=== PATIENT | female | born 1975 | race Caucasian/White ===

== ENCOUNTER 2016-07-20 19:46 | Observation (INO) ==
[2016-07-20 20:43] LABS: Apearance,Urine Slightly Hazy (Clear); Bacteria,Urine Moderate /HPF (Few); Bilirubin,Urine Negative (Negative); Blood, Urine Moderate mg/dL (Negative); Glucose,Urine (UA) Negative (Negative); Ketones,Urine Negative (Negative); Mucus,Urine Occasional /LPF (Occasional); Nitrite,Urine Positive (Negative); Protein,Urine Negative; RBC,Urine 4 /HPF (0-4); Squamous Epithelial Cell,Urine Occasional /HPF (0-10); Urine Color Yellow (Yellow); Urine Specific Gravity 1.018 (1.001-1.035); WBC,Urine 5 /HPF (0-6)
[2016-07-20 21:01] LABS: Basophils % 0.4 % (0.0-0.8); Eosinophils # 0.1 10*3/uL (0.0-0.87); Eosinophils % 1.3 % (0.00-10.9); Hematocrit 36.4 VOL% (35.7-47.0); Hemoglobin 12.1 GM/DL (12.0-16.0); Immature Granulocytes % 0.5 %; Immature Granulocytes Absolute 0.06 #; Lymphocytes # 2.8 10*3/uL (1.4-4.0); Mean Corpuscular HGB Conc 33.2 GM/DL (32-36); Mean Corpuscular Hemoglobin 30 PG (27-34); Mean Corpuscular Volume 90.1 FL (87-102); Mean Platelet Volume 10.4 FL (9.6-12.0); Monocytes # 0.7 10*3/uL (0.11-0.8); Neutrophils # 7.3 10*3/uL (1.4-7.4); Neutrophils % 66.8 % (38.7-73.9); Platelet Count 213 T/CUMM (130-400); Red Blood Count 4.04 MC/CUMM (3.8-5.5); Red Cell Distribution Width 12.9 % (9.3-17.3)
--- NOTE | 2016-07-20 22:18 | Ultrasound Report ---
Exam: US renal Bilateral Date: 07/20/2016 9:29 PM Comparison: None Indication: Right flank pain Technique:[Multiple transabdominal real-time scans were obtained of the kidneys. Ultrasound images were captured and stored.] Findings: Right kidney measures 107 x 46 x 44 mm. Left kidney measures 112 x 51 x 50 mm. No hydronephrosis or mass. Impression: Unremarkable renal ultrasound. PROCEDURE INTERPRETED AT [facility] DEPARTMENT OF RADIOLOGY Final Report Signed by: Dr. Dahlia Carmichael
--- NOTE | 2016-07-20 22:18 | Ultrasound Report ---
Exam: US transvaginal Date: 07/20/2016 8:41 PM Comparison: None Indication: Right lower quadrant pain Technique:[Limited transabdominal scan obtained. Transvaginal scans were obtained. Findings: The uterus is anteverted in its position and measures 94 x 61 x 50 mm. The endometrial stripe measures 8 mm with no gestational sac. Right ovary measures 44 x 28 x 32 mm with 13 x 11 x 16 mm cyst. Additional 11 x 9 mm exophytic or paraovarian cyst. 19 x 16 x 13 mm right adnexal abnormality with minimal to moderate free fluid. Left ovary measures 24 x 11 x 16 mm. Color flow documented in the ovaries.] Impression: No viable intrauterine . This finding can be associated with early not identified or recent . However there is a 19 x 16 x 13 mm indeterminate right adnexal abnormality. With this finding, ectopic cannot be excluded with associated right ovarian cysts and minimal to moderate free fluid. Findings were discussed with Dr. Chan at 10:00 PM on 07/20/2016. Critical test results PROCEDURE INTERPRETED AT [facility] DEPARTMENT OF RADIOLOGY Final Report Signed by: Dr. Dahlia Carmichael
--- NOTE | 2016-07-20 22:22 | Emergency Department Note ---
I, Selina Whitten, am scribing for, and in the presence of, Art Chan MD 21: 05. IDustin Chad, MD, personally performed the services described in this documentation, ascribed by Selina Whitten in my presence, and it is both accurate and complete . Arrival - Arrival Chief Complaint: Abdominal / Flank Pain Stated Complaint: UNK WEEKS PREG/PAIN IN STOMACH ED Nursing Triage Note: Patient complains of severe abdominal pain and dark red spotting that began yesterday. Patient states that she just found out that she was on and has not yet seen an ob-oxyacetylene burner. Patient denies nausea or vomiting at this time. Mode of Arrival: Ambulatory Limitations: No Limitations Source: Patient Time Seen by Provider: 07/20/16 20:40 - History of Present Illness HPI Narrative: Pt is a 41 y/o female that came to the ED with c/o RLQ abdominal pain that began 3 days ago. Pt reports she found out she was 3 days ago but has not seen an OBGYN yet and her last known period was the 05 of June. Pt states she also has dark red spotting but had it with her previous pregnancies as well. Pt reports the abdominal pain radiates to her back. Pt denies a Hx of kidney stones. Pt states the pain has worsened since it came on 3 days ago but has eased off since being in the ER. 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 Pt states she is currently on suboxone to help come off opioids and she is seeing her doctor Saturday, July 23, 2016 about her medication. Pt is . No other complaints/pain in ED. Onset (ago): day(s) Consistency: constant Severity: mild Severity scale (1-10): 2 Quality: sharp Date of Last Menstrual Period: 06/05/2016 Allergies/Adverse Reactions: Allergies Allergy/AdvReac Type Severity Reaction Status Date / Time povidone-iodine Allergy ANAPHYLAXIS Verified 07/20/16 20:05 [From Betadine] soap [From Betadine] Allergy ANAPHYLAXIS Verified 07/20/16 20:05 Penicillins AdvReac HIVES Verified 07/20/16 20:05 Home Medications: Home Medications Medication Instructions Recorded Confirmed Type Buprenorphine HCl/Naloxone HCl 1 each SL DAILY 07/20/16 07/20/16 History [Suboxone 4 mg-1 mg Sl Film] Nitrofurantoin Monohyd/M-Cryst 100 mg PO BID #14 capsule 07/20/16 Rx [Macrobid 100 mg Capsule] Review of System - Review of System 12 point system: reviewed and no additional remarkable complaints except as stated - Review of System Constitutional: Absent: fever Respiratory: Absent: cough Cardiovascular: Absent: chest pain Gastrointestinal: Present: abdominal pain (RLQ abdominal pain). Absent: nausea , vomiting Genitourinary female: Present: abnormal menses Musculoskeletal: Present: back pain (abdominal pain radiates to back). Absent: arm pain Skin: Absent: rash Neurological: Absent: headache Psychiatric: Absent: anxiety Medical,Surgical,& Family Hx - Social History Smoking Status: Current every day smoker Frequency of Alcohol Use: None Type of Drug Use: None Exam Vital Signs: Vital Signs Temperature 98.7 F 07/20/16 20:06 Pulse Rate 85 07/20/16 20:06 Respiratory Rate 18 07/20/16 20:06 Blood Pressure 94/72 07/20/16 20:06 O2 Sat by Pulse Oximetry 97 07/20/16 20:06 - General General appearance: alert, in no apparent distress - Head Head exam: Present: atraumatic, normocephalic - Eye Eye exam: Present: PERRL, EOMI - ENT ENT exam: Present: mucous membranes moist. Absent: mucous membranes dry - Neck Neck exam: Present: full ROM. Absent: tenderness - Chest Chest inspection: Present: symmetric chest wall rise. Absent: tenderness - Respiratory Respiratory exam: Present: normal lung sounds bilaterally. Absent: respiratory distress - Cardiovascular Cardiovascular exam: Present: regular rate, normal rhythm, normal heart sounds - Abdominal Exam Abdominal exam: Present: soft, tenderness (mild RLQ tenderness) - Extremities Exam Extremities exam: Present: full ROM. Absent: tenderness - Back Exam Back exam: Present: full ROM. Absent: tenderness - Neurological Exam Neurological exam: Present: alert, oriented X3, CN II-XII intact. Absent: motor sensory deficit - Psychiatric Psychiatric exam: Present: normal affect, normal mood - Skin Skin exam: Present: warm, dry Results - Labs CBC & BMP: 07/20/16 20:31 Lab Results: I have reviewed the patients labs Labs: Laboratory Tests 07/20/16 07/20/16 20:16 20:17 Urine Color Yellow Urine Appearance Slightly hazy Urine pH 7.0 Ur Specific [place] 1.018 Urine Protein Negative Urine Glucose (UA) Negative Urine Ketones Negative Urine Blood Moderate Urine Nitrate Positive H Urine Bilirubin Negative Urine Urobilinogen 2.0 H Urine Leukocytes Negative Urine RBC 4 Urine WBC 5 Ur Squamous Epith Cells Occasional Urine Bacteria Moderate Urine Mucus Occasional Urine Test Positive Disposition Clinical Impression: UTI (urinary tract infection), Abdominal pain, Abnormal ultrasound Case discussed with: patient, patient's family Disposition: Still a Patient Condition: Stable Instructions: Urinary Tract Infection in Women (ED), Abdominal Pain in (ED) Additional Instructions: discussed abnormal us with dr petty radiology and dr krystle verma. macrobid rx cancelled pt will be admitted to Dr. Krystle Verma tonight orders from Dr. Krystle Verma will be given to the floor Prescriptions: Nitrofurantoin Monohyd/M-Cryst [Macrobid 100 mg Capsule] 100 mg PO BID #14 capsule New Prescriptions: Rx's Medication Instructions Recorded Nitrofurantoin Monohyd/M-Cryst 100 mg PO BID #14 capsule 07/20/16 [Macrobid 100 mg Capsule] Time of Disposition: 22:21
[2016-07-20] MEDS: LACTATED RINGERS 1,000 ML IV SCH (22:35)
[2016-07-20] MEDS: NITROFURANTOIN MACRO/MONO 100 MG CAPSULE PO SCH (23:44)
[2016-07-21 00:53] LABS: Hematocrit 34.4 VOL% (35.7-47.0); Hemoglobin 11.4 GM/DL (12.0-16.0)
[2016-07-21 03:09] LABS: Hematocrit 33.6 VOL% (35.7-47.0); Hemoglobin 11.3 GM/DL (12.0-16.0)
[2016-07-21] MEDS ORDERED: IBUPROFEN 800 MG TABLET PO PRN (09:15)
[2016-07-21] MEDS: CLINDAMYCIN INJ 900 MG in PREMIX 1 EACH IV SCH ×2 (09:25→17:00)
[2016-07-21] MEDS ORDERED: IBUPROFEN 800 MG TABLET ONE (11:15)
[2016-07-21 11:24] LABS: Hematocrit 36.6 VOL% (35.7-47.0); Hemoglobin 12.2 GM/DL (12.0-16.0)
[2016-07-21] MEDS: LACTATED RINGERS 1,000 ML IV SCH (11:30)
[2016-07-21] MEDS: NITROFURANTOIN MACRO/MONO 100 MG CAPSULE PO SCH (12:01)
--- NOTE | 2016-07-21 12:30 | OB/GYN History & Physical ---
History of Present Illness History of present illness: Ms. Sneed is a 41 year old female Pt. 41y/o presents to ER with complaints of abdominal pain and vaginal spotting. Pt. states that she took a home test which resulted positive however she did not start pnc yet. Pt. denies any nausea or vomiting. no fever or chills. no chest pain or shortness of breath Home Medications Medication Instructions Recorded Confirmed Type Buprenorphine HCl/Naloxone HCl 1 each SL DAILY 07/20/16 07/20/16 History [Suboxone 4 mg-1 mg Sl Film] Nitrofurantoin Monohyd/M-Cryst 100 mg PO BID #14 capsule 07/20/16 Rx [Macrobid 100 mg Capsule] Allergies Allergy/AdvReac Type Severity Reaction Status Date / Time povidone-iodine Allergy ANAPHYLAXIS Verified 07/20/16 20:05 [From Betadine] soap [From Betadine] Allergy ANAPHYLAXIS Verified 07/20/16 20:05 Penicillins AdvReac HIVES Verified 07/20/16 20:05 Medical,Surgical,& Family Hx - Family History Family History: Reports;: Family Diabetes (Paternal grandmother), Family Stroke (paternal grandmother) - Social History Smoking Status: Current every day smoker Frequency of Alcohol Use: None Type of Drug Use: None Exam [employer] - Constitutional Vitals: Vital Signs Temp Pulse Resp BP Pulse Ox 07/21/16 10:00 97.1 F L 74 18 98/59 99 07/21/16 09:00 97.4 F L 79 18 85/41 100 07/21/16 08:00 98.4 F 81 18 84/44 100 07/21/16 06:52 62 18 90/49 97 07/21/16 06:00 79 18 98/50 97 07/21/16 05:00 61 18 93/45 97 07/21/16 04:00 97.5 F L 67 18 84/50 97 07/21/16 03:00 63 18 95/50 98 07/21/16 02:00 84 18 89/62 97 07/21/16 01:00 77 110/67 97 07/21/16 00:00 97.6 F 87 18 85/50 97 07/20/16 23:00 70 18 95/52 98 General appearance: no acute distress - Antepartum / Post Antepartum Exam Cervix -Dilatation: closed - Respiratory Respiratory exam: Present: clear to auscultation bilaterally - Cardiovascular Cardiovascular exam: Present: regular rate and rhythm - GI/Abdominal GI/Abdominal exam: Present: normal bowel sounds (soft, nontender, no rebound or guarding) - Extremities Exam Extremities exam: Present: normal inspection Assessment and Plan (1) Positive test Status: Acute Current Visit: Yes (2) Urinary tract infection Status: Acute Assessment and plan: 1. Pt. this am asymptomatic, bhcg 215 to 200 to 258, will repeat however i explained to the patient it appears this is an abnormal however can not rule out ectopic. I spoke with Dr. Carmichael-radiologist last night on the phone who explained the free fluid on sonogram appeared simple and not hemorrhagic. There is no iup seen and slight dilation of the right fallopian tube. I gave my recommendation of Methotrexate including risk/benefits/and alternatives. Will repeat bhcg and sonogram and if still confirms diagnosis of abnormal/ectopic will give methotrexate and allow pt to f/u in the clinic for repeat bhcg. Pt. expressed her understanding. Current Visit: Yes Results - Labs CBC & BMP: 07/21/16 11:14
[2016-07-21 16:40] LABS: Albumin 3.5 G/DL (3.4-5.0); Bilirubin,Total 0.4 MG/DL (0.2-1.0); Calcium 8.9 MG/DL (8.5-10.1); Osmolality,Calculated 278.3 MOS/KG (273-304); Potassium 4.3 MMOL/L (3.5-5.1); Total Protein 6.2 G/DL (6.4-8.3)
--- NOTE | 2016-07-21 16:42 | Ultrasound Report ---
Exam: US transvaginal Date: 07/21/2016 4:00 PM Comparison: 07/20/2016 Indication: Possible ectopic Technique:[Multiple transverse and sagittal real-time scans were obtained of the pelvis.] Color flow scans were obtained. Ultrasound images were captured and stored. Findings: The uterus is anteverted in its position and measures 104 x 47 x 61 mm. Endometrial stripe measures 8.2 mm. No gestational sac identified in the uterus. Right ovary measures 37 x 27 x 27 mm and contains a 16 x 16 x 12 mm and 12 x 8 x 9 mm cysts. 36 x 20 x 18 mm right adnexal abnormality which measured 19 x 16 x 13 mm on previous exam. The margins of the finding are more ill-defined and difficult to separate from the uterus and right ovary. The finding appears more hyperechoic with no significant cystic component. Left ovary measures 22 x 19 x 18 mm. Color flow documented in the ovaries with minimal free fluid. Impression: No viable intrauterine . These findings can be associated with early not identified a recent . More ill-defined but larger 36 x 20 x 18 mm right adnexal abnormality. Ectopic cannot be excluded with this finding this finding is more difficult to separate from the uterus and right ovary and may be related to additional pathology. The finding appears more hyperechoic which may be related to progressive hemorrhage within the finding. Decreased free fluid with only minimal free fluid remaining. Continued correlation with hCG titers and follow up ultrasound may be helpful for further evaluation. PROCEDURE INTERPRETED AT [facility] DEPARTMENT OF RADIOLOGY Final Report Signed by: Dr. Dahlia Carmichael
[2016-07-21] MEDS ORDERED: METHOTREXATE 50 MG/2 ML VIAL IM ONE (18:00)
[2016-07-22] MEDS: CLINDAMYCIN INJ 900 MG in PREMIX 1 EACH IV SCH ×2 (01:47→09:36)
[2016-07-22 05:57] LABS: Basophils % 0.4 % (0.0-0.8); Eosinophils # 0.1 10*3/uL (0.0-0.87); Eosinophils % 1.9 % (0.00-10.9); Hematocrit 33.7 VOL% (35.7-47.0); Hemoglobin 11.2 GM/DL (12.0-16.0); Immature Granulocytes % 0.3 %; Immature Granulocytes Absolute 0.02 #; Lymphocytes # 2.8 10*3/uL (1.4-4.0); Lymphocytes % 37.4 % (21.3-54.2); Mean Corpuscular HGB Conc 33.2 GM/DL (32-36); Mean Corpuscular Hemoglobin 30 PG (27-34); Mean Corpuscular Volume 89.4 FL (87-102); Mean Platelet Volume 10.6 FL (9.6-12.0); Monocytes # 0.6 10*3/uL (0.11-0.8); Monocytes % 7.4 % (1.7-12.7); Neutrophils % 52.6 % (38.7-73.9); Platelet Count 225 T/CUMM (130-400); Red Blood Count 3.77 MC/CUMM (3.8-5.5); White Blood Count 7.5 T/CUMM (4-12)
[2016-07-22 07:32] VITALS: BP 91/45
== END 2016-07-22 10:50 | disposition home or self-care (01) ==
LOC: N.ED 19:46 → INTOOBSV 22:19 → N.OB 22:19 → N.EDINP 22:19 → N.OB 22:25
PROVIDERS: ADMIT Obstetrics & Gynecology; ATTEND Obstetrics & Gynecology